=== PATIENT | female | born 1990 | race Caucasian/White ===

== ENCOUNTER 2021-07-24 13:25 | Emergency (ER) | payer OTHER, SELFPAY ==
[2021-07-24 13:43] VITALS: BP 129/81; PULSE 97; RESP 18; TEMP 37; O2SAT 100
--- NOTE | 2021-07-24 14:27 | ED.URI ---
HPI - URI/Sore Throat General Chief Complaint: Upper Respiratory Infection Stated Complaint: not feeling well,chills,fatigue Source: patient and RN notes reviewed Limitations: no limitations History of Present Illness HPI Narrative: The vaccinated patient, a non-smoker/nondrinker, has a 1 to 2-day history of sore throat, nasal congestion after returning on airline flight earlier in the week. Symptoms are mild, unrelieved OTC preparations like Tylenol . No fever, vomiting/diarrhea, rash, cough, wheezing; no CP, loss of taste/smell, S OB-she had negative Covid test earlier this week also. Related Data Allergies Allergy/AdvReac Type Severity Reaction Status Date / Time amoxicillin Allergy Hives Verified 07/24/21 14:34 Review of Systems Review of Systems: General/Constitutional: No weight loss,fever Eyes: N0: Redness,discharge Ears/Nose/Throat: No: Epistaxis,ear discharge Respiratory: Denies: Hemoptysis Gastrointestinal: No Vomiting, Bleeding-rectal Skin: No Lumps, eruption Neurologic: No Focal Weakness,Sz Hematologic: Denies: Petechiae/Purpura Psychiatric: No: Suicida ideationl All Other Systems: Reviewed and Negative PMFSH Comments At time of signature, agree with nursing past medical, surgical, social and family history. There is no relevant family history pertinent to the presenting complaint Exam Narrative: General Appearance: Well appearing, Well nourished EYE: PERRLA, Conjunctiva clear Ears: Auditory canal normal, TM normal Nose: Rhinorrhea, Mucousal erythema Mouth/Throat: MM moist, Uvula midline, Pharyngeal erythema Neck: Supple, No adenopathy Respiratory: No respiratory distress, Breath sounds equal, Clear to auscultation Cardiovascular: RRR, No JVD Musculoskeletal: Non tender, Normal strength Skin: Warm, Dry Neurological: A&O x3, CN II-XII intact Psychiatric: Normal mood, Normal affect Course Vital Signs Vital signs: Vital Signs Temperature 98.6 F 07/24/21 13:43 Pulse Rate 97 07/24/21 13:43 Respiratory Rate 18 07/24/21 13:43 Blood Pressure 129/81 07/24/21 13:43 Pulse Oximetry 100 07/24/21 13:43 Temperature 98.6 F 07/24/21 13:43 Pulse Rate 97 07/24/21 13:43 Respiratory Rate 18 07/24/21 13:43 Blood Pressure 129/81 07/24/21 13:43 Pulse Oximetry 100 07/24/21 13:43 MDM - URI/Sore Throat Lab Data Labs: Lab Results 07/24/21 Range/Units 14:15 POC SARS CoV-2 Ag Negative (Negative) Discharge Plan Discharge Clinical Impression: Sinus headache Patient Disposition: Home, Self-Care Condition: Stable Instructions: Antibiotic Form Prescriptions: New azithromycin 250 mg tablet See Rx Instructions .ROUTE .COMPLEX Qty: 6 RF: 0 codeine-guaifenesin 10-100 mg/5 mL liquid 7.5 ml PO Q6H PRN (Reason: cough) Qty: 118 RF: 0 azelastine 137 mcg (0.1 %) aerosol,spray 137 mcg NASAL Q12H Qty: 30 RF: 0 Follow-up/Referrals: UNKNOWN,DOCTOR [Primary Care Provider] - Stand Alone Forms: Work/School Release IP
== END 2021-07-24 14:44 | disposition home or self-care (01) ==
PROVIDERS: Emergency Provider Emergency Medicine
DX: R51.9 Headache, unspecified (principal); Z20.822 Contact with and (suspected) exposure to COVID-19
CPT/HCPCS: 87426; 99203; C9803; G0463

== ENCOUNTER 2022-01-30 17:43 | Emergency (ER) | payer OTHER, SELFPAY ==
[2022-01-30 18:02] VITALS: BP 125/79; PULSE 88; RESP 18; TEMP 36.2; O2SAT 100
--- NOTE | 2022-01-30 18:41 | ED.GENADULT ---
HPI - General Adult General Chief complaint: Upper Respiratory Infection Stated complaint: Rt Ear and Facial Pain,Fatigue Source: patient Mode of arrival: ambulatory Limitations: no limitations History of Present Illness HPI narrative: Patient presents for evaluation of sick symptoms. Seven days ago she had acute onset fever and sinus congestion. She contacted her PCP and was seen six days ago. She was told she likely had the flu but no diagnostic testing performed. She states fever improved but sinus congestion persisted. She thought she was getting better but in the past few days she developed mucopurulent discharge from her nares, right frontal and retro-orbital headache and dental pain. No recent sick contacts to her knowledge. She does not smoke. She tried taking OTC agents for congestion, but they did not seem to help. She states that her throat is mildly bothersome. She had COVID back in October of this year. Related Data Allergies Allergy/AdvReac Type Severity Reaction Status Date / Time amoxicillin Allergy Hives Verified 01/30/22 18:05 Review of Systems Review of Systems: CONSTITUTIONAL: Denies fever, chills, or sweats. EYES: Denies visual changes, redness, or discharge. ENT: Reports sinus congestion, thick mucopurulent discharge from nares, mild sore throat, and dental pain CARDIOVASCULAR: Denies chest pain, palpitations, or edema. RESPIRATORY: Denies cough or dyspnea. GASTROINTESTINAL: Denies abdominal pain, nausea, vomiting, or diarrhea. GENITOURINARY: Denies dysuria or hematuria. SKIN: Denies rash or itching. MUSCULOSKELETAL: Denies back pain, joint pain, or myalgia. NEUROLOGIC: Reports headache. Denies numbness, dizziness, or weakness. PSYCHIATRIC: Denies anxiety or depression. [facility] Past Medical History Medical History COVID Surgical History Surgical History No pertinent past surgical history Family History Family History Mother Family history non-contributory Social History Social History Smoking status: Never smoker Substance use: never Living arrangements: with family Gender identity (if verbalized by the patient): Female Sexual Orientation (if Verbalized by the Patient): Straight or Heterosexual Spiritual care concerns: No Exam Narrative: GENERAL: Well-appearing, well-nourished, and in no acute distress. HEAD: Normocephalic, atraumatic. EYES: PERRLA and EOMI. ENT: Nares clear, no rhinorrhea or epistaxis. Mucous membranes moist. Bilateral tonsillar enlargement and erythema. Uvula is midline. Right sided maxillary and frontal sinus tenderness. Bilateral TMs pearly batista nonbulging NECK: Supple. No adenopathy or masses. No carotid bruits or JVD CHEST: Clear to auscultation. No respiratory distress. No wheezes rales or rhonchi HEART: Regular rate and rhythm. No murmur heard. Normal peripheral pulses. ABDOMEN: Soft, nontender, nondistended, normal active bowel sounds. EXTREMITIES: Normal range of motion. No edema. SKIN: Warm, dry, no rash. NEURO: No focal deficits. Alert and oriented x3. PSYCH: Normal mood and affect. Course Course Emergency Course: This is a 31 yr old female here for evaluation of sick symptoms. Strep was negative. Pt declined influenza swab. Based on symptom duration and mucopurulent discharge from bilateral nares, she meets criteria for ABRS. She has an allergy to amoxicillin so will treat with doxycycline. She should follow up outpatient for further evaluation and treatment and return for worsening symptoms. Pt in agreement with plan of care. Level of Care: Express Care Visit Vital Signs Vital signs: Vital Signs Temperature 36.2 C L 01/30/22 18:02 Pulse Rate 88 01/30/22 18:02 Respiratory Rate 18 05
== END 2022-01-30 18:31 | disposition home or self-care (01) ==
PROVIDERS: Emergency Provider Nurse Practitioner
DX: J01.90 Acute sinusitis, unspecified (principal); Z86.16 Personal history of COVID-19
CPT/HCPCS: 87081; 87880; 99213; G0463

== ENCOUNTER 2022-12-04 12:50 | Emergency (ER) | payer OTHER, SELFPAY ==
--- NOTE | 2022-12-04 12:53 | ED.URI ---
HPI - URI/Sore Throat General Stated Complaint: Rt Ear Irritation Time Seen by Provider: 12/04/22 12:53 Source: patient Mode of arrival: ambulatory Limitations: no limitations History of Present Illness HPI Narrative: Patient is a 32-year-old female presents with right ear irritation and decreased hearing. States she has had her ears cleaned out due to cerumen impaction in the past. States she used a Q-tip yesterday in after relates she just pushed the wax further in causing her symptoms. Denies any ear pain, congestion, headache, fever, chills. Related Data Home Medications Medication Instructions Recorded Confirmed No Home Medications 12/04/22 12/04/22 Allergies Allergy/AdvReac Type Severity Reaction Status Date / Time amoxicillin AdvReac Mild Hives Verified 12/04/22 13:01 Review of Systems Review of Systems: All systems reviewed & are unremarkable except as noted in HPI and below Constitutional: Constitutional: Denies body ache(s), Denies chills, Denies excessive sweating, Denies fever(s), Denies headache(s) and Denies malaise Eyes: Eyes: Denies blurry vision, Denies eye discharge and Denies irritation ENT: Reports ear discharge, Reports otalgia, Denies headache(s), Reports hearing loss, Denies nasal congestion, Denies nasal discharge and Denies sore throat Cardiovascular: Cardiovascular: Denies chest pain, Denies edema, Denies palpitations and Denies dyspnea on exertion Respiratory: Respiratory: Denies cough and Denies dyspnea on exertion Gastrointestinal: Gastrointestinal: Denies abdominal pain, Denies diarrhea, Denies nausea and Denies vomiting Musculoskeletal: Musculoskeletal: Denies back pain, Denies arthralgias and Denies muscle weakness Integumentary/Breasts: Skin/Breast: Denies pruritus and Denies rash Neurologic: Denies headache(s) Psychiatric: Psychiatric: Reports no additional psychiatric complaints Endocrine: Endocrine: Denies excessive sweating and Denies palpitations PMFSH Past Medical History Medical History COVID Surgical History Surgical History No pertinent past surgical history Family History Family History Mother Family history non-contributory Social History Social History Smoking status: Never smoker Substance use: never Living arrangements: with family Gender identity (if verbalized by the patient): Female Sexual Orientation (if Verbalized by the Patient): Straight or Heterosexual Spiritual care concerns: No Comments At time of signature, agree with nursing past medical, surgical, social and family history. There is no relevant family history pertinent to the presenting complaint? Exam Const: General: cooperative, healthy appearing, no acute distress and well nourished Nutritional Appearance: well nourished Orientation/consciousness: patient oriented x3 Limitations: no limitations HENMT: Head: normal to inspection, normocephalic and atraumatic Ears: hearing grossly normal bilaterally, no periauricular adenopathy and unable to visualize TM bilaterally (cerumen impaction) Face/Nose/Sinus: Normal external nose present, Normal nares present, Normal nasal mucous membranes and turbinates present, No nasal discharge present, normal facial exam and sinuses nontender Face and sinus: normal facial exam and sinuses nontender Mouth: Yes Normal oral and palatal mucosa present, Yes lip normal, Yes tongue normal and Yes moist mucous membranes Throat: posterior oropharynx normal, tonsils normal and uvula midline Eyes: General: appearance normal, both eyes and all related structures Alignment and Position: alignment normal and position normal Eyelids: eyelids normal Pupils: Equal, round and reactive pupils present EOM: EOMs intact
[2022-12-04 13:00] VITALS: BP 121/73; PULSE 97; RESP 16; TEMP 36.6; O2SAT 100
[2022-12-04 13:02] VITALS: BP 121/73; PULSE 97; RESP 16; TEMP 36.6; O2SAT 100
== END 2022-12-04 13:48 | disposition home or self-care (01) ==
PROVIDERS: Emergency Provider Nurse Practitioner Family
DX: H61.23 Impacted cerumen, bilateral (principal)
CPT/HCPCS: 69210; 99212; G0463

== ENCOUNTER 2024-01-21 10:34 | Emergency (ER) | payer OTHER, SELFPAY ==
[2024-01-21] VITALS (8 sets, daily range): BP systolic 104–116; BP diastolic 74–79; PULSE 79–96; RESP 15–19; TEMP 36.5; O2SAT 99–100
--- NOTE | 2024-01-21 10:49 | ED.NAVMDI ---
HPI - Nausea/Vomiting/Diarrhea General Chief complaint: Nausea/Vomiting/Diarrhea Stated complaint: nausea Time Seen by Provider: 01/21/24 10:43 Source: patient Mode of arrival: ambulatory Limitations: no limitations History of Present Illness HPI Narrative: This is a 33-year-old female who presents to the ED with chief complaint of N/V beginning around 4:00 p.m. yesterday. Patient reports she tried a mushroom gummy for the 1st time patient thinks she is having a bad reaction. Reports diaphoresis, nausea, vomiting ever since. Denies abdominal pain, diarrhea, chest pain, shortness of breath, fevers, chills, back pain. States she tried 4 mg Zofran at home around 8:00 a.m. this morning with no relief Related Data Allergies Allergy/AdvReac Type Severity Reaction Status Date / Time amoxicillin AdvReac Mild Hives Verified 12/04/22 13:01 Review of Systems Review of Systems: All systems as dictated in [facility] Past Medical History Medical History COVID Surgical History Surgical History No pertinent past surgical history Family History Family History Mother Family history non-contributory Social History Social History Smoking status: Never smoker Substance use: never Living arrangements: with family Gender identity (if verbalized by the patient): Female Sexual Orientation (if Verbalized by the Patient): Straight or Heterosexual Spiritual care concerns: No Exam Narrative: GENERAL: Well-appearing, well-nourished, and in no acute distress. HEAD: Normocephalic, atraumatic. EYES: PERRLA and EOMI. ENT: Nares clear, no rhinorrhea or epistaxis. Mucous membranes moist. Oropharynx without tonsillar hypertrophy exudate or other lesions. NECK: Supple. No adenopathy or masses. CHEST: No respiratory distress. Clear to auscultation. No wheezes rales or rhonchi HEART: Regular rate and rhythm. No murmur heard. Normal peripheral pulses. ABDOMEN: Soft, nontender, nondistended, normal active bowel sounds. MSK: Normal range of motion. No edema. SKIN: Warm, dry, no rash. NEURO: Alert and oriented x3. No focal deficits. PSYCH: Normal mood and affect. Course Vital Signs Vital signs: Vital Signs Temperature 97.7 F 01/21/24 10:40 Pulse Rate 89 01/21/24 10:40 Respiratory Rate 18 01/21/24 10:40 Blood Pressure 116/78 01/21/24 10:40 Pulse Oximetry 99 01/21/24 10:40 Oxygen Delivery Room Air 01/21/24 10:40 Temperature 97.7 F 01/21/24 10:40 Pulse Rate 89 01/21/24 10:40 Respiratory Rate 18 01/21/24 10:40 Blood Pressure 116/78 01/21/24 10:40 Pulse Oximetry 99 01/21/24 10:40 Oxygen Delivery Room Air 01/21/24 10:40 MDM - Nausea/Vomiting/Diarrhea MDM Narrative Medical decision making narrative: This is a 33 year old female who presents to the ED with chief complaint of nausea and vomiting after trying a mushroom gummy yesterday. Vitals are normal. Exam is benign. Lab work is unremarkable. She improved greatly with Reglan IV. She feels ready to go home he would like to rest in her own bed. Pt will be discharged in stable condition. Return precautions given and supportive measures discussed. Pt is understanding and agreeable with plan for discharge and follow-up with PCP. Discharge Plan Discharge Clinical Impression: Nausea & vomiting Patient Disposition: Home, Self-Care Condition: Stable Instructions: Antibiotic Form, Acute Nausea and Vomiting (ED) Prescriptions: New metoclopramide HCl [Reglan] 10 mg tablet 10 mg PO Q4-6H PRN (Reason: nausea and vomiting) Qty: 10 0RF Follow-up/Referrals: [place], [Non-Staff] - Time of Disposition: 11:28
[2024-01-21] MEDS: METOCLOPRAMIDE HCL INJ 10 MG/2 ML VIAL IV PUSH (11:05)
[2024-01-21 11:07] LABS: Basophils Percent Auto 0.5 % (0.2-1.2); Eosinophils Percent Auto 0.5 % (0-4.4); Hematocrit 37.7 % (37.0-47.0); Hemoglobin 12.9 g/dL (12.0-15.0); Immature Granulocyte Absolute 0.02 K/mm3 (0.00-0.031); Immature Granulocyte Percent A 0.3 % (0-0.5); Lymphocytes Absolute Auto 1.65 K/mm3 (0.9-3.2); Lymphocytes Percent Auto 25.3 % (18.3-44.2); Mean Corpuscular HGB Conc 34.2 g/dl (32-36); Mean Corpuscular Hemoglobin 30.5 pg (26-34); Mean Corpuscular Volume 89.1 fl (80-100); Mean Platelet Volume 10.9 fl (7.4-10.4); Monocytes Absolute Auto 0.6 K/mm3 (0.1-0.6); Monocytes Percent Auto 8.9 % (2.6-8.5); Neutrophils Absolute Auto 4.2 K/mm3 (1.3-6.7); Neutrophils Percent Auto 64.5 % (45.5-73.1); Platelet Count Result 223 k/mm3 (150-375); Red Blood Count 4.23 M/mm3 (4.2-5.4); Red Cell Distribution Width 12.8 % (11.5-14.5); White Blood Count 6.5 K/mm3 (4.5-10.0)
[2024-01-21 11:20] LABS: Alanine Aminotransferase 17 U/L (6-35); Albumin Level 4.2 g/dL (3.5-5.1); Alkaline Phosphatase 63 U/L (38-126); Anion Gap 7 mmol/L (4-12); Aspartate Amino Transferase 20 U/L (14-36); Bilirubin,Total 0.7 mg/dL (0.2-1.3); Blood Urea Nitrogen 12 mg/dL (7-17); Carbon Dioxide 23 mmol/L (22-30); Chloride 110 mmol/L (98-107); Estimated CRCL calculation 99 ml/min; Estimated Glomerular Filt Rate > 60; Glucose 94 mg/dL (65-110); Potassium 3.6 mmol/L (3.4-5.0); Sodium 140 mmol/L (137-145)
[2024-01-21 11:28] LABS: Magnesium 1.9 mg/dL (1.6-2.3)
== END 2024-01-21 11:35 | disposition home or self-care (01) ==
PROVIDERS: Emergency Provider Physician Assistant
DX: R11.2 Nausea with vomiting, unspecified (principal); Z86.16 Personal history of COVID-19
CPT/HCPCS: 36415; 80053; 83735; 85025; 96374; 99284; J2765

== ENCOUNTER 2024-09-22 10:30 | Emergency (ER) | payer OTHER, SELFPAY ==
[2024-09-22 10:36] VITALS: BP 106/74; PULSE 120; RESP 20; TEMP 36.4; O2SAT 100
--- NOTE | 2024-09-22 10:37 | ECG_ITS ---
Test Date: 2024-09-22 10:41:27 Measurements Intervals [place] Rate: 121 P: 66 TN: 157 QRS: 45 QRSD: 71 T: 43 QT: 338 QTc: 480 Interpretive Statements SINUS TACHYCARDIA NONSPECIFIC T-WAVE ABNORMALITY ABNORMAL ECG No previous ECG available for comparison Electronically Signed On 09-22-2024 15:32:30 [employer] by Shane Higgins M.D.
[2024-09-22 13:28] VITALS: O2SAT 100
[2024-09-22 13:29] VITALS: BP 104/69; PULSE 99; RESP 16; O2SAT 100
--- NOTE | 2024-09-22 14:32 | ED_ITS ---
HPI - URI/Sore Throat General Chief Complaint: Upper Respiratory Infection Stated Complaint: heart palpitations, fever, throat pain Time Seen by Provider: 09/22/24 13:51 Source: patient Mode of arrival: ambulatory Limitations: no limitations History of Present Illness HPI Narrative: Patient presents with report throat pain, neck pain myalgias, and heart palpitations. She states this has been worsening the last 4 days. She also started her last menstrual cycle Monday and states that it seems heavier than normal. Her heart rate is normally 65-70 she noted that it was 120-125 her watch. She denies any chest pain or shortness of breath. Her bowel movements had typically been normal but she states she has been constipated the last few days. She is having odynophagia but not dysphagia or dysphonia. She states the pain does not seem like it is in her posterior oropharynx but rather in her neck. She is concerned that this may represent an abnormal thyroid function given that this runs in her family in her mother, sister, and maternal grandmother. She was seen at an urgent care where she tested negative for strep. No cough; she initially states that she had a low-grade fever at home, temperature was 99.8?. She took ibuprofen at 7:30 a.m. and Tylenol at 10. She is in between primary care physicians through [facility] as her last 1 left. Related Data Allergies Allergy/AdvReac Type Severity Reaction Status Date / Time No Known Allergies Allergy Verified 09/22/24 13:30 [facility] Past Medical History Medical History COVID Surgical History Surgical History No pertinent past surgical history Family History Family History Mother Thyroid disease Sibling Thyroid disease Grandparent Thyroid disease Social History Social History Smoking status: Never smoker Substance use: never Living arrangements: with family Gender identity (if verbalized by the patient): Female Sexual Orientation (if Verbalized by the Patient): Straight or Heterosexual Spiritual care concerns: No Exam 2 Narrative: GENERAL: Well-appearing, well-nourished, and in no acute distress. HEAD: Normocephalic, atraumatic. EYES: Non injected, non icteric ENT: Nares clear, no rhinorrhea or epistaxis. Posterior oropharynx mildly erythematous but without tonsillar hypertrophy or exudate. Uvula midline. NECK: Supple. No meningismus. Thyroid feels normal, not enlarged during palpation/swallow assessment. CHEST: Speaking in full sentences. No respiratory distress. HEART: Tachycardic rate and rhythm. . ABDOMEN: Soft, nondistended. EXTREMITIES: Normal range of motion. No lower extremity edema. SKIN: Warm, dry, no rash. NEURO: No focal deficits. Alert and oriented x3. PSYCH: Normal mood and affect. Course Vital Signs Vital signs: Vital Signs Temperature 97.5 F L 09/22/24 10:36 Pulse Rate 120 H 09/22/24 10:36 Respiratory Rate 20 09/22/24 10:36 Blood Pressure 106/74 09/22/24 10:36 Pulse Oximetry 100 09/22/24 10:36 Temperature 97.5 F L 09/22/24 10:36 Pulse Rate 101 H 09/22/24 17:08 Respiratory Rate 20 09/22/24 17:08 Blood Pressure 110/60 09/22/24 17:08 Pulse Oximetry 100 09/22/24 17:08 Oxygen Delivery Room Air 09/22/24 13:28 MDM - URI/Sore Throat MDM Narrative Medical decision making narrative: Patient presents with concern for thyroid dysfunction given that she has been having heart palpitations throat/neck pain, myalgias consistently also notes constipation and heavy. . She denies any cough. Temperature mildly elevated at home. In the emergency department she is afebrile with vital signs that are initially notable for tachycardia although this does improve without interval intervention initially. She tests positive for influenza a and is mildly leukopenic. She has been having symptoms for 4 days and otherwise is low risk; no role for Tamiflu. Tachycardia recurs; will give a 1L fluid bolus. test negative. Given that there appears to be a reason for patient's symptoms, I attribute her sore throat to be related to viral syndrome and will defer pursuing further imaging of her neck. TSH normal. I am notified that patient's vital signs have improved, she remains slightly tachycardic but at 103bpm. She had told the nurse that she was also feeling much better. Patient has been advised to remain well-hydrated, get plenty of rest, no work or school for several days. Take Tylenol or Motrin [id number] for pain as needed (provided prescriptions for these). Return to the emergency department if symptoms don't improve within 3 days or if symptoms worsen. Provided referral/contact information for an alternative primary care physician given that she is in between finding a provider. Differential Diagnosis Differential diagnosis: Likely upper respiratory infection, sinusitis, viral infection, influenza, pharyngitis and other (Thyroid dysfunction, ) Lab Data Attestation: I reviewed the patient's lab results. 09/22/24 15:03 09/22/24 15:03 Labs: Lab Results 09/22/24 09/22/24 09/22/24 Range/Units 14:43 15:03 16:06 WBC 3.5 L (4.5-10.0) K/mm3 RBC 4.17 L (4.2-5.4) M/mm3 Hgb 12.9 (12.0-15.0) g/dL Hct 37.2 (37.0-47.0) % MCV 89.2 (80-100) fl MCH 30.9 (26-34) pg MCHC 34.7 (32-36) g/dl RDW 11.9 (11.5-14.5) % Plt Count 170 (150-375) k/mm3 MPV 10.7 H (7.4-10.4) fl Immature Gran % (Auto) 0.6 H (0-0.5) % Neut % (Auto) 76.7 H (45.5-73.1) % Lymph % (Auto) 11.2 L (18.3-44.2) % [place]arr[place] % (Auto) 9.5 H (2.6-8.5) % Eos % (Auto) 1.4 (0-4.4) % Baso % (Auto) 0.6 (0.2-1.2) % Lymph # (Auto) 0.39 L (0.9-3.2) K/mm3 [place] # (Auto) 0.3 (0.1-0.6) K/mm3 Eos # (Auto) 0.1 (0-0.3) K/mm3 Baso # (Auto) 0.0 (0.0-0.1) K/mm3 Abs Immat Gran (auto) 0.02 (0.00-0.031) K/mm3 Absolute Neuts (auto) 2.7 (1.3-6.7) K/mm3 Absolute Nucleated RBC 0.000 (0.0-0.012) K/mm3 Nucleated RBC % 0.0 (0.0-0.2) % Sodium 137 (137-145) mmol/L Potassium 3.8 (3.4-5.0) mmol/L Chloride 106 (98-107) mmol/L Carbon Dioxide 27 (22-30) mmol/L Anion Gap 4 (4-12) mmol/L BUN 11 (7-17) mg/dL Creatinine 0.68 L (0.7-1.0) mg/dL Estim Creat Clear Calc 91 ml/min Estimated GFR > 60 (59 - ) Glucose 85 (65-110) mg/dL Calcium 8.7 (8.4-10.2) mg/dL Magnesium 2.0 (1.6-2.3) mg/dL Total Bilirubin 0.7 (0.2-1.3) mg/dL AST 17 (14-36) U/L ALT 12 (6-35) U/L Alkaline Phosphatase 62 (38-126) U/L Total Protein 7.0 (6.3-8.2) g/dL Albumin 4.1 (3.5-5.1) g/dL TSH 1.170 (0.465-4.680) uIU/mL POC Urine HCG, Qual Negative (Negative) Influenza A (RT-PCR) Positive A (Negative) Influenza B (RT-PCR) Negative (Negative) RSV (RT-PCR) Negative (Negative) SARS-CoV-2 RNA (RT-PCR) Negative (Negative) ECG Data EKG #1: Attestation: I personally reviewed and interpreted this ECG as follows: ECG completion date: 09/22/24 ECG completion time: 10:41 Prior ECG tracings: not available for review (No prior for comparison) Interpretation: Sinus tachycardia at a rate of 121 beats per minute. NM interval 157. QRS 71. QT/QTC 338/410. Good R-wave progression across the precordial leads. Questionable T-wave inversion/biphasic T-waves in leads 2 and AVF. Patient also has T-wave inversion in V3, normal in V4. Discharge Plan Discharge Clinical Impression: Influenza A, Leukopenia Patient Disposition: Home, Self-Care Condition: Stable Instructions: Antibiotic Form, Influenza (DC) Additional Instructions: Your thyroid function was normal although you did test positive for influenza A. Rest and maintain your hydration. Acetaminophen/Tylenol (maximum 4000 mg per day) is safe to take with NSAIDs (ibuprofen/Motrin) for pain relief. You can follow-up with primary care physician as needed. Because you are currently in between primary care physicians, the name of a doctor is listed below if needed. Return to the emergency department with any new or worsened or unmanaged symptoms. Patient Language: Bulgarian Prescriptions: New ibuprofen 600 mg tablet 600 mg PO TID PRN (Reason: pain) Qty: 30 0RF acetaminophen 500 mg capsule 1,000 mg PO Q6H PRN (Reason: pain) Qty: 30 0RF No Action metoclopramide HCl [Reglan] 10 mg tablet 10 mg PO Q4-6H PRN (Reason: nausea and vomiting) Qty: 10 0RF Follow-up/Referrals: PHYSICIAN,LABORER PRESTRESSED CONCRETE [Primary Care Provider] - Reggie Dawson MD [Physician] - (family practice/internal medicine) Stand Alone Forms: Work/School Release IP Time of Disposition: 17:01
[2024-09-22] MEDS: dexAMETHasone 2 MG TABLET 10 MG PO (14:53)
[2024-09-22 15:07] VITALS: BP 106/90; PULSE 116; RESP 16; O2SAT 98
[2024-09-22 15:09] LABS: Basophils Percent Auto 0.6 % (0.2-1.2); Eosinophils Absolute Auto 0.1 K/mm3 (0-0.3); Eosinophils Percent Auto 1.4 % (0-4.4); Hematocrit 37.2 % (37.0-47.0); Hemoglobin 12.9 g/dL (12.0-15.0); Immature Granulocyte Absolute 0.02 K/mm3 (0.00-0.031); Immature Granulocyte Percent A 0.6 % (0-0.5); Lymphocytes Absolute Auto 0.39 K/mm3 (0.9-3.2); Lymphocytes Percent Auto 11.2 % (18.3-44.2); Mean Corpuscular HGB Conc 34.7 g/dl (32-36); Mean Corpuscular Hemoglobin 30.9 pg (26-34); Mean Corpuscular Volume 89.2 fl (80-100); Mean Platelet Volume 10.7 fl (7.4-10.4); Monocytes Absolute Auto 0.3 K/mm3 (0.1-0.6); Monocytes Percent Auto 9.5 % (2.6-8.5); Neutrophils Absolute Auto 2.7 K/mm3 (1.3-6.7); Neutrophils Percent Auto 76.7 % (45.5-73.1); Platelet Count Result 170 k/mm3 (150-375); Red Blood Count 4.17 M/mm3 (4.2-5.4); Red Cell Distribution Width 11.9 % (11.5-14.5); White Blood Count 3.5 K/mm3 (4.5-10.0)
[2024-09-22 15:24] LABS: Alanine Aminotransferase 12 U/L (6-35); Albumin Level 4.1 g/dL (3.5-5.1); Alkaline Phosphatase 62 U/L (38-126); Anion Gap 4 mmol/L (4-12); Aspartate Amino Transferase 17 U/L (14-36); Bilirubin,Total 0.7 mg/dL (0.2-1.3); Blood Urea Nitrogen 11 mg/dL (7-17); Calcium 8.7 mg/dL (8.4-10.2); Carbon Dioxide 27 mmol/L (22-30); Chloride 106 mmol/L (98-107); Estimated CRCL calculation 91 ml/min; Estimated Glomerular Filt Rate > 60; Glucose 85 mg/dL (65-110); Potassium 3.8 mmol/L (3.4-5.0); Sodium 137 mmol/L (137-145)
[2024-09-22 15:26] LABS: Influenza A QL RT-PCR Positive (Negative); Influenza B QL RT-PCR Negative (Negative); RSV RNA, RT-PCR Negative (Negative); SARS-CoV-2 RNA PCR Negative (Negative)
[2024-09-22 16:08] LABS: BEDSIDEPREGUCG Negative (Negative)
[2024-09-22] MEDS: SODIUM CHLORIDE 0.9% IV 1,000 ML 999 ML IV CONT (16:10)
[2024-09-22 17:08] VITALS: BP 110/60; PULSE 101; RESP 20; O2SAT 100
== END 2024-09-22 17:09 | disposition home or self-care (01) ==
PROVIDERS: Emergency Provider Student in an Organized Health Care Education/Training Program
DX: J10.1 Influenza due to other identified influenza virus with other respiratory manifestations (principal); D72.819 Decreased white blood cell count, unspecified; Z20.822 Contact with and (suspected) exposure to COVID-19
CPT/HCPCS: 36415; 80053; 81025; 83735; 84443; 85025; 87637; 93005; 96360; 99283; J7030; J8540